=== PATIENT | male | born 1935 | race Caucasian/White ===

== ENCOUNTER 2016-11-26 01:41 | Emergency (ER) | payer MEDICARE, OTHER ==
[~2016-11-26] VITALS: Ht 165.1 cm; Wt 100.0 kg
[~2016-11-26 01:41] MED LIST: ACLOVATE0.05 % EX; AMITRIPTYLIN25 MG PO; CIPRO500 MG PO; COQ-10200 MG PO; COREG12.5 MG PO; DILAUDID2 MG OR; ECPIRIN325 MG OR; FLOMAX0.4 M1 PO; FOSINOPRIL40 MG PO; LANTUS SC; LASIX 20 MG TAB20 MG PO; LEVAQUIN500 MG PO; LYRICA150 MG PO; METFORMIN HCL500 M1 PO; METFORMIN1000 MG PO; MYSOLINE50 M1 OR; SIMVASTATIN20 MG PO; VITAMIN B-121000 MCG PO; ZOCOR20 MG PO
[2016-11-26 02:43] LABS: HEMATOCRIT 33.2 % (39.0-50.0); IMMATURE GRANULOCYTES 0.5 % (0.0-1.0); MEAN CORPUSCULAR HGB 29.8 pG CALC (26.0-32.0); MEAN CORPUSCULAR HGB CONC 33.1 g/L CALC (32.0-36.0); NEUT# 4.23 thou/uL (1.82-7.42); RED BLOOD COUNT 3.69 mill/uL (4.70-6.10)
[2016-11-26 02:45] LABS: ALKALINE PHOSPHATASE 65 u/l (38-126); ANION GAP 15 (6-22 (CALC)); BILIRUBIN, TOTAL 0.4 mg/dL (0.0-1.4); BUN 23 mg/dL (8-23); BUN/CREATININE RATIO 19 (12-20 (CALC)); CALCIUM 9.2 mg/dL (8.4-10.2); CARBON DIOXIDE 25 mmol/l (22-30); CHLORIDE 107 mmol/l (95-108); CREATININE 1.2 mg/dL (0.7-1.3); GFR 58 ML/MIN (>=60 (CALC)); GFR FOR AFR.AMER. > 60 ML/MIN (>=60 (CALC)); GLUCOSE 121 mg/dL (82-115); POTASSIUM 3.5 mmol/l (3.5-5.1); SGOT/AST 22 u/l (19-48); SGPT/ALT 22 u/l (11-66); SODIUM 143 mmol/l (137-146); TOTAL PROTEIN 6.7 g/dL (6.3-8.2)
[2016-11-26 05:02] VITALS: BP 118/54
== END 2016-11-26 05:13 | disposition home or self-care (01) ==
LOC: ED 01:41
PROVIDERS: Emergency Medicine
DX: E11.649 Type 2 diabetes mellitus with hypoglycemia without coma (principal); Z79.4 Long term (current) use of insulin; R41.82 Altered mental status, unspecified

== ENCOUNTER → 2018-05-27 | Outpatient (REF) | payer MEDICARE, OTHER ==
[2018-05-27 09:48] LABS: HEMATOCRIT 37.1 % (39.0-50.0); HEMOGLOBIN 11.9 g/dl (14.0-18.0); MEAN CELL VOLUME 91.2 fL CALC (80.0-100.0); MEAN CORPUSCULAR HGB 29.2 pG CALC (26.0-32.0); MEAN CORPUSCULAR HGB CONC 32.1 g/L CALC (32.0-36.0); RED BLOOD COUNT 4.07 mill/uL (4.70-6.10); RED CELL DISTRI WIDTH 14.1 % (11.5-15.5)
[2018-05-27 12:12] LABS: ALBUMIN 3.9 g/dL (3.2-5.0); BILIRUBIN, TOTAL 0.3 mg/dL (0.0-1.4); CHOLESTEROL HDL RATIO 2.9 (<4.4 (CALC)); CREATININE 1.4 mg/dL (0.7-1.3); POTASSIUM 4.1 mmol/l (3.5-5.1); TOTAL PROTEIN 6.7 g/dL (6.3-8.2)
== END | disposition home or self-care (01) ==
LOC: LAB 08:06
PROVIDERS: ATTEND Nurse Practitioner Family
DX: E11.22 Type 2 diabetes mellitus with diabetic chronic kidney disease (principal); E11.42 Type 2 diabetes mellitus with diabetic polyneuropathy; I10 Essential (primary) hypertension; N18.3 Chronic kidney disease, stage 3 (moderate)

== ENCOUNTER 2018-06-26 18:56 | Emergency (ER) | payer OTHER, MEDICARE ==
[~2018-06-26] VITALS: Ht 165.1 cm; Wt 104.5 kg
[~2018-06-26 18:56] MED LIST changes: -COQ-10200 MG PO; +COQ10200 MG PO; -LANTUS SC; +LANTUS100 UNIT/M SC; -MYSOLINE50 M1 OR; +MYSOLINE50 M1 PO; +ZOCOR20 M1 PO; -ZOCOR20 MG PO
[2018-06-26 20:00] VITALS: BP 169/74
[2018-06-26] MEDS ORDERED: FISH OIL1000 MG PO (20:13)
[2018-06-26] MEDS ORDERED: BAYER ASPIRIN325 MG PO (20:14)
[2018-06-26] MEDS ORDERED: VITAMIN D3400 UNI2 PO (20:14)
[2018-06-26] MEDS ORDERED: CARVEDILOL25 MG PO (20:15)
[2018-06-26] MEDS ORDERED: AMLODIPINE BESYL5 MG PO (20:16)
[2018-06-26] MEDS ORDERED: FOSINOPRIL SODI40 MG PO (20:17)
== END 2018-06-26 20:00 | disposition home or self-care (01) | DRG 125 ==
LOC: ED 18:56
DX: S05.12XA Contusion of eyeball and orbital tissues, left eye, initial encounter (principal); S60.222A Contusion of left hand, initial encounter; S60.221A Contusion of right hand, initial encounter; V49.40XA Driver injured in collision with unspecified motor vehicles in traffic accident, initial encounter; Y92.414 Local residential or business street as the place of occurrence of the external cause